=== PATIENT | male | born 1980 | race Caucasian/White ===

== ENCOUNTER 2022-01-03 22:26 | Emergency (ER) | payer BC ==
[2022-01-03] MEDS: KETOROLAC TROMETHAMINE 30 MG/ML VIAL IM STA (23:02)
[2022-01-03] MEDS ORDERED: KETOROLAC TROMETHAMINE 30 MG/ML VIAL ONE (23:13)
[2022-01-03] MEDS ORDERED: GABAPENTIN300 MG PO (23:16)
[2022-01-03] MEDS ORDERED: AMOX TR-K CLV1 EAC2 PO (23:16)
[2022-01-03 23:23] VITALS: BP 181/106
== END 2022-01-03 23:23 | disposition home or self-care (01) ==
LOC: FSED 22:30
DX: K02.9 Dental caries, unspecified (principal); K04.7 Periapical abscess without sinus
CPT/HCPCS: 96372; 99282; J1885